=== PATIENT | female | born 1950 | race American Indian/Alaskan Native ===

== ENCOUNTER 2016-08-17 06:34 | Day surgery (SDC) | payer MEDICARE ==
[2016-08-17] MEDS ORDERED: WATER FOR IRRIG STERILE IR ONE (06:52)
[2016-08-17] MEDS ORDERED: WATER FOR IRRIG STERILE ONE (06:53)
[2016-08-17] MEDS ORDERED: NACL 0.9% 1000 ML 1,000 ML IV SCH (07:00)
[2016-08-17] MEDS ORDERED: DIPRIVAN 10 MG/ML IV ONE ×3 (07:23→07:59)
--- NOTE | 2016-08-17 07:25 | Anesthesia Consultation ---
Anesthesia Consult and Med Hx Date of service: 08/17/16 - Airway Anesthetic Teeth Evaluation: Edentulous ROM Head & Neck: Adequate Mental/Hyoid Distance: Adequate Mallampati Class: Class II Intubation Access Assessment: Probably Good - Pulmonary Exam CTA: Yes - Cardiac Exam Cardiac Exam: RRR - Pre-Operative Health Status ASA Pre-Surgery Classification: ASA3 Proposed Anesthetic Plan: MAC - Pulmonary Hx Smoking: Yes (quit years ago) - Cardiovascular System Hx Hypertension: Yes Hx Coronary Artery Disease: Yes (CABG 2012) - Endocrine Hx Renal Disease: Yes Hx Non-Insulin Dependent Diabetes: Yes - Other Systems Hx Obesity: Yes
--- NOTE | 2016-08-17 07:26 | Anesthesia Day of Surgery ---
Anesthesia Day of Surgery - Day of Surgery Patient Examined: Yes Patient H&P Reviewed: Yes Patient is NPO: Yes
--- NOTE | 2016-08-17 08:23 | Short Stay Summary ---
Short Stay Documentation - Allergies and Medications Current Medications: Allergies No Known Allergies Allergy (Verified 08/16/16 14:34) Home Medications Medication Instructions Recorded Confirmed Last Taken Type AtorvaSTATin 40 mg PO HS 08/16/16 08/17/16 08/16/16 History Carvedilol 6.25 mg PO BID 08/16/16 08/17/16 08/16/16 History Lantus Solostar 60 units SUB-Q HS 08/16/16 08/17/16 08/16/16 History Lasix TAB 40 mg PO DAILY 08/16/16 08/17/16 08/16/16 History Lisinopril 2.5 mg PO DAILY 08/16/16 08/17/16 08/17/16 History NovoLOG Flexpen 10 units SUB-Q TID 08/16/16 08/17/16 08/16/16 History Potassium Chloride 20 meq PO DAILY 08/16/16 08/17/16 08/16/16 History Active Medications Sodium Chloride (Nacl 0.9% 1000 Ml) 1,000 mls @ 50 mls/hr IV DIRECT HERMELINDA Stop: 08/17/16 23:59 Last Admin: 08/17/16 07:40 Dose: 50 mls/hr - Brief post op/procedure progress note Date of procedure: 08/17/16 Pre-op diagnosis: 1. Colon cancer screening 2. H/o colon polyp Post-op diagnosis: same (1. Poor prep 2. Diverticulosis coli 3. Internal hemorrhoids) Procedure: Colonoscopy Anesthesia: MAC Findings: as above Surgeon: MULU CHAKRABORTY Estimated blood loss: none Pathology: none Condition: stable - Disposition Condition at discharge: Stable Disposition: DISCHARGED TO HOME OR SELFCARE Short Stay Discharge Plan Activity: no restrictions Weight Bearing Status: Full Weight Bearing Diet: regular Follow up with: ERIS DENNISON MD, PHD [Primary Care Provider] - 7 Days
[2016-08-17 08:48] VITALS: BP 114/68
--- NOTE | 2016-08-17 09:31 | Post Anesthesia Evaluation ---
- Post Anesthesia Evaluation Patient Participated: Yes Airway Patent: Yes Stable Respiratory Function: Yes Nausea/Vomiting: No Temp > 96.8F: Yes Pain Manageable: Yes Adequeate Hydration: Yes Anesthesia Complications: No
== END 2016-08-17 06:35 | disposition home or self-care (01) ==
LOC: GIO 06:34
PROVIDERS: ATTEND Internal Medicine Gastroenterology
DX: Z12.11 Encounter for screening for malignant neoplasm of colon (principal); K57.30 Diverticulosis of large intestine without perforation or abscess without bleeding; K64.8 Other hemorrhoids; M19.90 Unspecified osteoarthritis, unspecified site; I10 Essential (primary) hypertension; I25.10 Atherosclerotic heart disease of native coronary artery without angina pectoris; E78.00 Pure hypercholesterolemia, unspecified; E11.9 Type 2 diabetes mellitus without complications; E66.01 Morbid (severe) obesity due to excess calories; Z68.36 Body mass index [BMI] 36.0-36.9, adult; Z86.010 Personal history of colon polyps; Z79.4 Long term (current) use of insulin; Z95.1 Presence of aortocoronary bypass graft; Z87.891 Personal history of nicotine dependence; Z98.51 Tubal ligation status; Z90.710 Acquired absence of both cervix and uterus; Z83.3 Family history of diabetes mellitus
CPT/HCPCS: 82962; G0121; J2704; J7030

== ENCOUNTER 2017-04-16 10:26 | Outpatient (CLI) | payer MEDICARE ==
--- NOTE | 2017-04-16 16:02 | Mammography Report ---
BILATERAL DIGITAL SCREENING MAMMOGRAM with CAD : 04/16/17 10:26:00 CLINICAL: Routine screening. COMPARISON:06/22/16 and 04/13/16 FINDINGS: The breasts are heterogeneously dense, which may obscure small masses.Stable bilateral calcifications with benign morphology. No mass, architectural distortion or suspicious calcifications. IMPRESSION: No mammographic evidence of malignancy. BI-RADS CATEGORY: 2 -- Benign RECOMMENDATION: Routine mammographic screening in one year. COMMENT: Patient follow-up letters are generated by our [employer] application.
== END 2017-04-16 10:27 | disposition home or self-care (01) ==
LOC: SPVWC 10:26
DX: Z12.31 Encounter for screening mammogram for malignant neoplasm of breast (principal)
CPT/HCPCS: 77067; G0202